=== PATIENT | female | born 1975 | race American Indian/Alaskan Native ===

== ENCOUNTER 2020-08-27 19:49 | Emergency (ER) | payer MEDICAID ==
[2020-08-27 20:12] VITALS: BP 142/105
[2020-08-27] MEDS ORDERED: ASPIRIN 325 MG TAB PO ONE (20:12)
--- NOTE | 2020-08-27 20:20 | Event Note ---
ED Screening Note Date of service: 08/27/20 Time: 20:10 ED Screening Note: 44-year-old -[place] female presents to the emergency room for nausea and vomiting abdominal pain. Patient has a history of gastro sleeve, abdominal obstruction. This initial assessment/diagnostic orders/clinical plan/treatment(s) is/are subject to change based on patients health status, clinical progression and re- assessment by fellow clinical providers in the ED. Further treatment and workup at subsequent clinical providers discretion. Patient/guardian urged not to elope from the ED as their condition may be serious if not clinically assessed and managed. Initial orders include:
[2020-08-27 21:02] LABS: Alanine Aminotransferase 12 units/L (7-56); Albumin 4.8 g/dL (3.9-5); BUN/Creatinine Ratio 15; Blood Urea Nitrogen 12 mg/dL (7-17); Calcium 9.5 mg/dL (8.4-10.2); Hemolysis Index 11
--- NOTE | 2020-08-27 21:27 | XRay Report ---
CHEST 2 VIEWS INDICATION / CLINICAL INFORMATION: Chest Pain. COMPARISON: None available. FINDINGS: SUPPORT DEVICES: None. HEART / MEDIASTINUM: No significant abnormality. LUNGS / PLEURA: No significant pulmonary or pleural abnormality. No pneumothorax. ADDITIONAL FINDINGS: Cholecystectomy. IMPRESSION: 1. No acute findings. Signer Name: Giles Rogers MD Signed: 08/27/2020 9:23 PM Workstation Name: [id number]
[2020-08-27 21:33] LABS: Basophils % (Auto) 0.5 % (0.0-1.8); Hematocrit 28.3 % (30.3-42.9); Hemoglobin 9.6 gm/dl (10.1-14.3); Lymphocytes # (Auto) 0.7 K/mm3 (1.2-5.4); Lymphocytes % (Auto) 8.6 % (13.4-35.0); Mean Corpuscular HGB Conc 34 % (30-34); Mean Corpuscular Volume 72 fl (79-97); Monocytes # (Auto) 0.4 K/mm3 (0.0-0.8); Monocytes % (Auto) 5.6 % (0.0-7.3); Platelet Count 589 K/mm3 (140-440); Red Blood Count 3.91 M/mm3 (3.65-5.03)
== END 2020-08-28 00:05 | disposition left against medical advice (07) ==
LOC: ED 19:49
DX: R07.9 Chest pain, unspecified (principal); Z53.21 Procedure and treatment not carried out due to patient leaving prior to being seen by health care provider
CPT/HCPCS: 36415; 71046; 80048; 80053; 83690; 84484; 85025; 93005